=== PATIENT | female | born 1990 ===

== ENCOUNTER 2017-01-15 22:25 | Emergency (ER) | payer SELFPAY ==
[2017-01-15 22:36] VITALS: TEMP 98.5
--- NOTE | 2017-01-15 23:02 | C.PDOC ---
History Of Present Illness 26 year old female presents to the ED for evaluation of new onset right lower quadrant abdominal pain which began yesterday. Patient states her symptoms are localized and waxing and waning in duration. Patient denies fever, nausea, and vomiting. NEW ONSET RLQ PAIN SINCE YEST. LOCALIZED WAX WANE NO FEVER NV EXAM MILD DIST NONTOXIC ABD +RLQ TEND MOD SOFT NO R/G REMAINDER NEG Time Seen by Provider: 01/15/17 22:58 Chief Complaint (Nursing): Abdominal Pain History Per: Patient History/Exam Limitations: no limitations Onset/Duration Of Symptoms: Hrs, Waxing/Waning Current Symptoms Are (Timing): Still Present Location Of Pain/Discomfort: RLQ Radiation Of Pain To:: None Quality Of Discomfort: "Pain" Associated Symptoms: denies: Fever, Chills, Nausea, Vomiting Additional History Per: Patient Abnormal Vaginal Bleeding: No Past Medical History Reviewed: Historical Data, Nursing Documentation, Vital Signs Vital Signs: Last Vital Signs Temp 98.5 F 01/15/17 22:31 Pulse 127 H 01/15/17 22:31 Resp 18 01/15/17 22:31 BP 161/93 H 01/15/17 22:31 Pulse Ox 100 01/15/17 23:35 - Medical History PMH: No Chronic Diseases Surgical History: No Surg Hx Family History: States: Unknown Family Hx - Social History Hx Alcohol Use: No Hx Substance Use: No Review Of Systems Constitutional: Negative for: Fever Gastrointestinal: Positive for: Abdominal Pain (right lower quadrant ). Negative for: Nausea, Vomiting Physical Exam - Physical Exam Appears: Non-toxic, Other (in mild distress ) Skin: Normal Color, Warm, Dry Eye(s): bilateral: Normal Inspection Oral Mucosa: Moist Neck: Supple Chest: Symmetrical, No Deformity, No Tenderness Cardiovascular: Rhythm Regular, No Murmur Respiratory: Normal Breath Sounds, No Rales, No Rhonchi, No Wheezing Gastrointestinal/Abdominal: Soft, Tenderness (moderate, to right lower quadrant on palpation ), No Guarding, No Rebound Extremity: Normal ROM, Capillary Refill (less than 2 seconds ) Neurological/Psych: Oriented x3, Normal Speech, Normal Cognition Gait: Steady ED Course And Treatment - Laboratory Results Result Diagrams: 01/15/17 23:41 01/15/17 23:41 O2 Sat by Pulse Oximetry: 100 (on RA) Progress Note: Bloodwork, urinalysis, CT A/P ordered and reviewed. Morphine IVP , Zofran IVP and IV Fluids administered. Progress - Data Reviewed Data Reviewed: Lab, Diagnostic imaging Disposition Counseled Patient/Family Regarding: Studies Performed, Diagnosis, Need For Followup - Disposition Referrals: [facility] [Outside] [facility] [Outside] Disposition: HOME/ ROUTINE Disposition Time: 01:57 Condition: GOOD Instructions: Ovarian Cyst (ED) Forms: [employer] (Rwandan) Print Language: ALGERIAN - Clinical Impression Clinical Impression: Abdominal pain, Ovarian cyst - Scribe Statement The provider has reviewed the documentation as recorded by the Scribe (Kayce Santana) Provider Attestation: All medical record entries made by the Scribe were at my direction and personally dictated by me. I have reviewed the chart and agree that the record accurately reflects my personal performance of the history, physical exam, medical decision making, and the department course for this patient. I have also personally directed, reviewed, and agree with the discharge instructions and disposition.
[2017-01-15] MEDS ORDERED: Sodium Chloride 0.9% 1,000 ML IV ONE (23:08)
[2017-01-15 23:44] LABS: RBC URINE 6 /hpf (0-3); URINE BACTERIA OCC (<OCC); URINE BILIRUBIN NEGATIVE (NEGATIVE); URINE BLOOD 1+ (NEGATIVE); URINE COLOR Straw (YELLOW); URINE GLUCOSE (UA) NORMAL (Normal); URINE KETONE NEGATIVE (NEGATIVE); URINE LEUKOCYTE ESTERASE 3+ Leu/uL (Negative); URINE PROTEIN NEGATIVE (NEGATIVE); URINE UROBILINOGEN NORMAL mg/dL (0.2-1.0); WBC URINE 49 /hpf (0-5)
[2017-01-15 23:44] LABS: BASO # 0.1 K/uL (0.0-0.2); BASO % 0.3 % (0.0-2.0); EOS % 0.2 % (0.0-4.0); HEMATOCRIT 38.9 % (34.0-47.0); LYMPH # 1.8 K/uL (1.0-4.3); LYMPH % 11.7 % (20.0-40.0); MEAN CELL VOLUME 82.9 fL (81.0-99.0); MEAN CORPUSCULAR HEMOGLOBIN 27.6 pg (27.0-31.0); MEAN CORPUSCULAR HGB CONC 33.3 g/dL (33.0-37.0); MEAN PLATELET VOLUME 7.9 fL (7.2-11.7); MONO # 1.2 K/uL (0.0-0.8); MONO % 7.4 % (0.0-10.0); RED CELL DISTRIBUTION WIDTH 13.4 % (11.5-14.5); WHITE BLOOD COUNT 15.7 K/uL (4.8-10.8)
[2017-01-15 23:53] LABS: CHLORIDE 99 mmol/L (98-107)
[2017-01-15 23:54] LABS: SODIUM 134 mmol/L (132-148)
[2017-01-15 23:56] LABS: GFR AFRICAN-AMERICAN > 60
[2017-01-15 23:57] LABS: BLOOD UREA NITROGEN 8 mg/dL (7-17); CALCIUM 8.9 mg/dl (8.6-10.4); CARBON DIOXIDE 24 mmol/L (22-30); GLUCOSE,RANDOM 94 mg/dL (65-105)
[2017-01-16] MEDS ORDERED: Iodixanol 320 MG/ML 100 ML BOTTLE IV ONE (00:58)
--- NOTE | 2017-01-16 01:47 | CT ---
EXAM: CT Abdomen and Pelvis With Intravenous Contrast CLINICAL HISTORY: 26 years old, female; Pain; Abdominal pain; Additional info: Abd pain rlq TECHNIQUE: Axial computed tomography images of the abdomen and pelvis with intravenous contrast. All CT scans at this facility use one or more dose reduction techniques, viz.: automated exposure control; ma/kV adjustment per patient size (including targeted exams where dose is matched to indication; i.e. head); or iterative reconstruction technique. Coronal and sagittal reformatted images were created and reviewed. CONTRAST: 100 mL of administered intravenously. COMPARISON: No relevant prior studies available. FINDINGS: Lower thorax: Calcified granuloma within the left lung base. The remainder of the lung bases are otherwise clear. ABDOMEN: Liver: No acute findings. Gallbladder and bile ducts: The gallbladder is decompressed. No calcified stones. No significant intra- or extrahepatic biliary ductal dilation. Pancreas: Enhances homogeneously. No ductal dilation. No discrete mass. Spleen: No acute findings. Adrenals: No acute findings. Kidneys and ureters: No acute findings. No hydronephrosis or renal calculi. No discrete solid mass. PELVIS: Bladder: No acute findings. Reproductive: A 5.2 cm focus of decreased attenuation is identified within the right ovary, findings consistent with a right ovarian cyst. An intrauterine device is present, in good position. Dominant follicle within the left ovary. Appendix: The air filled appendix is of normal caliber (series 3, image 123; series 601, image 48). ABDOMEN and PELVIS: Stomach and bowel: No obstruction. No mucosal thickening. Peritoneum: No significant fluid collection. No free air. Lymph nodes: No pathologically enlarged lymph nodes. Vasculature: Unremarkable. Bones: No acute fracture. IMPRESSION: 5.2 cm cyst within the right ovary. Normal appendix.
[2017-01-16 02:13] VITALS: BP 144/84; PULSE 86; RESP 14; O2SAT 99
== END 2017-01-16 02:13 | disposition home or self-care (01) ==
LOC: C.ER 22:25
DX: N83.201 Unspecified ovarian cyst, right side (principal); R10.31 Right lower quadrant pain
CPT/HCPCS: 74177; 80048; 81001; 85025; 96374; 96375; 99284; J2270; J2405; J7040; Q9967

== ENCOUNTER 2018-02-04 00:02 | Emergency (ER) | payer SELFPAY ==
[2018-02-04 00:20] VITALS: PULSE 75
[2018-02-04] MEDS ORDERED: Acetaminophen-Codeine 300/30 mg Tab PO STA (00:32)
--- NOTE | 2018-02-04 00:36 | C.PDOC ---
History Of Present Illness 27 year old female presents to the ED c/o right upper toothache for the past 3 days. Patient states she was seen by her Dentist yesterday and was prescribed Motrin and Clindamycin. However patient states Motrin not helping with pain and is requesting stronger pain medication. Patient denies fever, chills, nausea, vomit, headache, trauma, injury, fall. Time Seen by Provider: 02/04/18 00:27 Chief Complaint (Nursing): Dental Pain History Per: Patient History/Exam Limitations: no limitations Onset/Duration Of Symptoms: Days (3) Current Symptoms Are (Timing): Still Present Quality: Positive for: "Pain" Recent travel outside of the [place]: No Additional History Per: Patient Past Medical History Reviewed: Historical Data, Nursing Documentation, Vital Signs Vital Signs: Last Vital Signs Temp 97.5 F L 02/04/18 00:05 Pulse 75 02/04/18 00:05 Resp 18 02/04/18 00:05 BP 129/90 02/04/18 00:05 Pulse Ox 100 02/04/18 00:05 - Medical History PMH: No Chronic Diseases Surgical History: No Surg Hx Family History: States: Unknown Family Hx - Social History Hx Alcohol Use: No Hx Substance Use: No Review Of Systems Constitutional: Negative for: Fever, Chills Eyes: Negative for: Vision Change ENT: Positive for: Mouth Pain. Negative for: Mouth Swelling Respiratory: Negative for: Cough, Shortness of Breath Gastrointestinal: Negative for: Nausea, Vomiting, Abdominal Pain Skin: Negative for: Rash Neurological: Negative for: Weakness, Numbness, Headache Physical Exam - Physical Exam Appears: Non-toxic, No Acute Distress Skin: Normal Color, Warm, Dry Head: Atraumatic, Normacephalic, No Swelling Eye(s): bilateral: Normal Inspection, PERRL, EOMI Oral Mucosa: Moist Tongue: No Swelling Lips: No Swelling Teeth: Tender To Palpation (minimsl , erythema to right upper pre molar area with no fluctuation. ) Throat: Normal, No Erythema, No Exudate Neck: Normal ROM, Supple Extremity: Normal ROM Neurological/Psych: Oriented x3, Normal Speech, Normal Cognition Gait: Steady ED Course And Treatment O2 Sat by Pulse Oximetry: 100 (ON RA) Pulse Ox Interpretation: Normal Progress Note: Plan: - Tylenol/codeine 2 tabs PO. On reassessment, patient is resting comfortably, and is in no acute distress. Patient was instructed to follow up with Dentist in 1-2 days for further evaluation. Disposition Counseled Patient/Family Regarding: Diagnosis, Need For Followup, Rx Given - Disposition Disposition: HOME/ ROUTINE Disposition Time: 00:33 Condition: STABLE Additional Instructions: Please follow up with Dentist tomorrow( Kyra al dentisbrandon sawyer) Continue [facility]- Return to ER if worse Instructions: Dental Pain (DC) Forms: [employer] (Kinyarwanda) Print Language: NIGERIAN - Clinical Impression Clinical Impression: Pain, dental - PA / [employer] [employer] CONSULTANT / Resident Statement MD/DO has reviewed & agrees with the documentation as recorded. - Scribe Statement The provider has reviewed the documentation as recorded by the Scribe Jori Guthrie All medical record entries made by the Scribe were at my direction and personally dictated by me. I have reviewed the chart and agree that the record accurately reflects my personal performance of the history, physical exam, medical decision making, and the department course for this patient. I have also personally directed, reviewed, and agree with the discharge instructions and disposition.
[2018-02-04] MEDS ORDERED: Acetaminophen-Codeine 300/30 mg Tab PO ONE ×2 (00:41→00:56)
[2018-02-04 00:56] VITALS: BP 130/90; RESP 20; TEMP 98
[2018-02-04 01:55] VITALS: O2SAT 100
== END 2018-02-04 00:54 | disposition home or self-care (01) ==
LOC: C.ER 00:02
DX: K08.89 Other specified disorders of teeth and supporting structures (principal)